=== PATIENT | female | born 1980 | race African-American/Black ===

== ENCOUNTER 2016-11-20 18:06 | Emergency (ER) | payer BC ==
[2016-11-20 18:26] VITALS: BP 109/71
--- NOTE | 2016-11-20 18:31 | ER Document Report ---
ED Medical Screen (RME) - General Stated Complaint: STOMACH AND RIGHT BACK PAIN Mode of Arrival: Ambulatory Information source: Patient Notes: pt presents to the ED with c/o severe epigastric RUQ pain that started this am. Reports nagging pain yesterday right side. Denies f/n/v/d. I greeted and performed a rapid initial assessment of this patient. Comprehensive ED assessment and evaluation of the patient, analysis of test results and completion of the medical decision making process will be conducted by additional ED providers. TRAVEL OUTSIDE OF THE [place] IN LAST 30 DAYS: No - Related Data Allergies/Adverse Reactions: No Known Allergies Allergy (Verified 05/19/15 10:22) Past Medical History Past Surgical History: Reports: Hx Gynecologic Surgery - laprascopy - Immunizations Hx Diphtheria, Pertussis, Tetanus Vaccination: Yes Physical Exam - Vital signs Vitals: Temp Pulse Resp BP Pulse Ox 98.1 F 90 17 109/71 100 11/20/16 18:24 11/20/16 18:24 11/20/16 18:24 11/20/16 18:24 11/20/16 18:24 Course - Vital Signs Vital signs: Temp Pulse Resp BP Pulse Ox 98.1 F 90 17 109/71 100 11/20/16 18:24 11/20/16 18:24 11/20/16 18:24 11/20/16 18:24 11/20/16 18:24
[2016-11-20 19:00] LABS: ABSOLUTE BASOPHILS # (AUTO) 0.1 10^3/uL (0.0-0.2); ABSOLUTE EOSINOPHILS # (AUTO) 0.2 10^3/uL (0.0-0.6); ABSOLUTE MONOCYTES (AUTO) 0.8 10^3/uL (0.1-1.4); BASOPHILS % (AUTO) 0.7 % (0-2); EOSINOPHILS % (AUTO) 3.2 % (0-6); HEMATOCRIT 39.4 % (36.0-47.0); HEMOGLOBIN 12.7 g/dL (12.0-15.5); HGB HCT DIFFERENCE -1.3; LYMPHOCYTES % (AUTO) 28.1 % (13-45); MEAN CORPUSCULAR HEMOGLOBIN 26.8 pg (27.0-33.4); MEAN CORPUSCULAR HGB CONC 32.1 g/dL (32.0-36.0); MEAN CORPUSCULAR VOLUME 84 fl (80-97); MONOCYTES % (AUTO) 11.4 % (3-13); RED BLOOD COUNT 4.71 10^6/uL (3.72-5.28); RED CELL DISTRIBUTION WIDTH 12.7 % (11.5-14.0); SEGMENTED NEUTROPHILS % (AUTO) 56.6 % (42-78)
[2016-11-20 19:09] LABS: APPEARANCE,URINE CLEAR; BILIRUBIN,URINE NEGATIVE (NEGATIVE); GLUCOSE, URINE NEGATIVE (NEGATIVE); KETONES,URINE NEGATIVE (NEGATIVE); LEUKOCYTE ESTERASE,URINE NEGATIVE (NEGATIVE); NITRITE,URINE POSITIVE (NEGATIVE); PROTEIN,URINE NEGATIVE (NEGATIVE); URINE SPECIFIC GRAVITY 1.016; UROBILINOGEN,URINE NEGATIVE mg/dL (<2.0)
[2016-11-20 19:27] LABS: ALANINE AMINOTRANSFERASE 37 U/L (9-52); ALKALINE PHOSPHATASE 53 U/L (38-126); ANION GAP 13 (5-19); ASPARTATE AMINO TRANSFERASE 35 U/L (14-36); BILIRUBIN,TOTAL 0.4 mg/dL (0.2-1.3); BLOOD UREA NITROGEN 18 mg/dL (7-20); CALCIUM 9.2 mg/dL (8.4-10.2); CARBON DIOXIDE 22 mmol/L (22-30); CHLORIDE 105 mmol/L (98-107); GLUCOSE 81 mg/dL (75-110); LIPASE 207.1 U/L (23-300); SODIUM 140.4 mmol/L (137-145); TOTAL PROTEIN 6.7 g/dL (6.3-8.2)
[2016-11-20] MEDS ORDERED: NITROFURANTOIN MONOHYD/M-CRYST 100 MG CAPSULE PO ONE (20:15)
[2016-11-20] MEDS ORDERED: HYDROCODONE/ACETAMINOPHEN 5-325 MG 6 TAB/DSPK PO PRN (20:15)
--- NOTE | 2016-11-20 20:18 | ER Document Report ---
HPI - HPI Patient complains to provider of: abdominal pain Onset: This morning Onset/Duration: Sudden, Persistent Quality of pain: Achy Severity: Severe Pain Level: 4 Associated Symptoms: None Exacerbated by: Denies Relieved by: Denies Similar symptoms previously: No Recently seen / treated by doctor: No - REPRODUCTIVE Reproductive: DENIES: : - DERM Skin Color: Normal Past Medical History - General Information source: Patient - Social History Smoking Status: Current Every Day Smoker Cigarette use (# per day): Yes Chew tobacco use (# tins/day): No Frequency of alcohol use: None Drug Abuse: None Family History: Reviewed & Not Pertinent Patient has suicidal ideation: No Patient has homicidal ideation: No Neurological Medical History: Reports: Other - trigeminal neuralgia Renal/ Medical History: Denies: Hx Peritoneal Dialysis GI Medical History: Reports: Hx Gastroesophageal Reflux Disease Psychiatric Medical History: Reports: Hx Anxiety Past Surgical History: Reports: Hx Dilation and Curettage, Hx Gynecologic Surgery - laprascopy - Immunizations Hx Diphtheria, Pertussis, Tetanus Vaccination: Yes Vertical Provider Document - CONSTITUTIONAL Agree With Documented VS: Yes Exam Limitations: No Limitations General Appearance: WD/WN, Mild Distress - looks like she doesn't feel well, nontoxic looking - INFECTION CONTROL TRAVEL OUTSIDE OF THE [place] IN LAST 30 DAYS: No - HEENT HEENT: Atraumatic, Normocephalic - NECK Neck: Normal Inspection, Supple - RESPIRATORY Respiratory: Breath Sounds Normal, No Respiratory Distress O2 Sat by Pulse Oximetry: 100 - CARDIOVASCULAR Cardiovascular: Regular Rate - GI/ABDOMEN Gastrointestinal: Abdomen Soft, Abdomen Tender - generalized. negative: Abdominal Guarding, Abdominal Rebound - MUSCULOSKELETAL/EXTREMETIES Musculoskeletal/Extremeties: YAJAIRA TRAN - NEURO Level of Consciousness: Awake, Alert, Appropriate Motor/Sensory: No Motor Deficit - DERM Integumentary: Warm, Dry Course - Re-evaluation Re-evalutation: 11/20/16 20:21 pt instructed on UTI, macrobid, s/s allergic reaction and importance of fu with pcp for recheck - Vital Signs Vital signs: Temp Pulse Resp BP Pulse Ox 98.1 F 90 17 109/71 100 11/20/16 18:24 11/20/16 18:24 11/20/16 18:24 11/20/16 18:24 11/20/16 18:24 - Laboratory Result Diagrams: 11/20/16 18:35 11/20/16 18:35 Laboratory results interpreted by me: 11/20/16 11/20/16 18:35 18:35 MCH 26.8 L Urine Nitrite POSITIVE H Urine Ascorbic Acid 20 H Discharge - Discharge Clinical Impression: Abdominal pain Qualifiers: Abdominal location: generalized Qualified Code(s): R10.84 - Generalized abdominal pain UTI (urinary tract infection) Qualifiers: Urinary tract infection type: site unspecified Hematuria presence: without hematuria Qualified Code(s): N39.0 - Urinary tract infection, site not specified Condition: Stable Disposition: HOME, SELF-CARE Instructions: Nitrofurantoin ([facility]), Oral Narcotic Medication ([facility]), Urinary Tract Infection ([facility]), Abdominal Pain ([facility]) Additional Instructions: *You have been evaluated for abdominal pain, UTI *Take medication as prescribed *Push fluids *Follow up with your primary care provider within one week for recheck *Plan urine recheck in one week *Return to ED for worsening condition, changes, needs Prescriptions: Nitrofurantoin/Nitrofuran Mac [Macrobid 100 mg Capsule] 100 mg PO BID #20 capsule Forms: Return to Work
== END 2016-11-20 20:25 | disposition home or self-care (01) ==
LOC: ER 18:06
DX: N39.0 Urinary tract infection, site not specified (principal); R10.84 Generalized abdominal pain; R10.817 Generalized abdominal tenderness; F17.210 Nicotine dependence, cigarettes, uncomplicated; Z87.19 Personal history of other diseases of the digestive system
CPT/HCPCS: 99284; 36415; 87086; 83690; 84703; 85025; 87088; 80053; 81001; 87186; J8499

== ENCOUNTER 2017-11-13 09:04 | Emergency (ER) | payer BC ==
[2017-11-13 09:25] VITALS: BP 115/82
--- NOTE | 2017-11-13 09:51 | ER Document Report ---
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 She reports onset this past of a 3 day history of pain in her right anterior chest, right neck shoulder region, and right scapular back. She does not know a history of any particular strain or stretch or injury. She does note the pain is worse when she uses her extremity, or when she lays on her left side. Laying on the right side tends to protect it. Sitting up and having her elbow on arm of the chair providing support helps the discomfort. She does have Baclofen to take as a muscle relaxer, she takes that for her trigeminal neuralgia pain. TRAVEL OUTSIDE OF THE [place] IN LAST 30 DAYS: No - Related Data Allergies/Adverse Reactions: No Known Allergies Allergy (Verified 11/20/16 20:24) Past Medical History - General Information source: Patient, [facility] Records, Outside Facility Records - Social History Smoking Status: Current Every Day Smoker Cigarette use (# per day): Yes Chew tobacco use (# tins/day): No Smoking Education Provided: No Frequency of alcohol use: None Drug Abuse: None Occupation: [employer] at [employer] Lives with: Family Family History: Reviewed & Not Pertinent Patient has suicidal ideation: No Patient has homicidal ideation: No - Past Medical History Cardiac Medical History: Reports: None Pulmonary Medical History: Reports: None EENT Medical History: Reports: None Neurological Medical History: Reports: Other - Trigeminal neuralgia Endocrine Medical History: Reports: None Renal/ Medical History: Reports: None GI Medical History: Reports: Hx Gastroesophageal Reflux Disease Musculoskeltal Medical History: Reports None Skin Medical History: Reports None Psychiatric Medical History: Reports: Hx Anxiety Past Surgical History: Reports: Hx Dilation and Curettage, Hx Gynecologic Surgery - laprascopy, D+C - Immunizations Hx Diphtheria, Pertussis, Tetanus Vaccination: Yes Review of Systems - Review of Systems Constitutional: No symptoms reported EENT: No symptoms reported Cardiovascular: No symptoms reported Respiratory: See HPI Gastrointestinal: No symptoms reported Genitourinary: No symptoms reported Female Genitourinary: No symptoms reported Musculoskeletal: See HPI Skin: No symptoms reported Hematologic/Lymphatic: No symptoms reported Neurological/Psychological: See HPI Physical Exam - Vital signs Vitals: Temp Pulse Resp BP Pulse Ox 98.0 F 75 12 115/82 100 11/13/17 09:23 11/13/17 09:23 11/13/17 09:23 11/13/17 09:23 11/13/17 09:23 Interpretation: Normal - General General appearance: Appears well, Alert In distress: None - HEENT Head: Normocephalic, Atraumatic Eyes: Normal Pupils: PERRL Neck: Supple, Other - Supporting the weight of the patient's head by lifting up under the chin and the base of the skull and allowing her to drop her shoulder muscles and totally relax feels much better. When I let go of the support she suddenly feels discomfort and wants to tense up her muscles again. Notes: Very tender to palpate the right posterior cervical muscles and right trapezius muscles going out toward the shoulder and over the scapular region. The left posterior cervical muscles and trapezius muscles are not tender to palpate. - Respiratory Respiratory status: No respiratory distress Breath sounds: Normal Chest palpation: Tender - Tenderness to palpate the right anterior chest muscles above the breast and underneath the upper breast tissue. - Cardiovascular Rhythm: Regular Heart sounds: Normal auscultation Murmur: No - Abdominal Inspection: Normal - Back Back: Tender - Tenderness to palpate the right medial scapular muscles and levator scapula muscles - Extremities General upper extremity: Other - The right trapezius muscles and right anterior and posterior shoulder muscles are somewhat tender to palpate. The entire area feels better if I support the weight of the upper extremity and allow her to let the muscles relax. General lower extremity: Normal inspection - Neurological Neuro grossly intact: Yes - Psychological Associated symptoms: Normal affect, Normal mood - Skin Skin Temperature: Warm Skin Moisture: Dry Skin Color: Normal Course - Vital Signs Vital signs: Temp Pulse Resp BP Pulse Ox 98.0 F 75 12 115/82 100 11/13/17 09:23 11/13/17 09:23 11/13/17 09:23 11/13/17 09:23 11/13/17 09:23 - EKG Interpretation by Pr EKG shows normal: Sinus rhythm, [place], Intervals, QRS Complexes, ST-T Waves Rate: Normal - 74 Rhythm: NSR Discharge - Discharge Clinical Impression: Muscle strain of anterior chest wall Strain of right trapezius muscle Qualifiers: Encounter type: initial encounter Qualified Code(s): S46.811A - Strain of other muscles, fascia and tendons at shoulder and upper arm level, right arm, initial encounter Strain of right levator scapulae muscle Qualifiers: Encounter type: initial encounter Qualified Code(s): S46.811A - Strain of other muscles, fascia and tendons at shoulder and upper arm level, right arm, initial encounter Disposition: HOME, SELF-CARE Additional Instructions: Muscle Strain: You have strained the muscles in your right anterior chest wall, your right neck and trapezius muscle region, and your right scapular back. This often occurs with strenuous exertion, or during an injury that suddenly stretches the muscle. The seriousness of a strain varies. Some strains heal within days, others cause problems for months. X-rays cannot show a muscle strain. X-rays are taken only if symptoms suggest that a fracture could be present. The usual treatment of a muscle strain is rest and ice packs. Sometimes, a sling, splint, or crutches may be necessary to rest the muscle. The muscle can be used again once pain subsides. Severe strains require a special exercise and stretching program to prevent permanent stiffness and disability. Your doctor will advise you if this will be necessary. Call the doctor immediately if pain or swelling becomes severe, or if numbness or discoloration develop. //////////////////////////////////////////////////////////////////////////////// //////////////////////////////////////////////////////////////////////////////// /////////////////// Use the sling to support the weight of your arm and shoulder, use soft collar to support the weight of your head. This should allow you to let the muscles relax. Continue taking your baclofen as a muscle relaxer. Take the pain medication as prescribed for pain and increased spasm if needed. Take Motrin 800 mg every 8 hours or 2 Aleve twice daily for the anti- inflammatory and pain relief benefit. Use moist heat to the painful muscles. Rest the right arm and shoulder is much as possible. Follow-up with your doctor if not improving over the next several days. RETURN TO THE EMERGENCY ROOM IF ANY NEW OR WORSENING SYMPTOMS. Prescriptions: Oxycodone HCl/Acetaminophen [Percocet 5-325 mg Tablet] 1 tab PO ASDIR PRN #15 tablet PRN Reason: Forms: Return to Work
--- NOTE | 2017-11-13 11:38 | EKG REPORT ---
SEVERITY:- NORMAL ECG - SINUS RHYTHM : Confirmed by: Millie Polanco 13-Nov-2017 11:37:20
== END 2017-11-13 10:01 | disposition home or self-care (01) ==
LOC: ER 09:04
DX: S29.011A Strain of muscle and tendon of front wall of thorax, initial encounter (principal); S29.012A Strain of muscle and tendon of back wall of thorax, initial encounter; S46.811A Strain of other muscles, fascia and tendons at shoulder and upper arm level, right arm, initial encounter; X58.XXXA Exposure to other specified factors, initial encounter; R07.9 Chest pain, unspecified; M54.2 Cervicalgia; M25.511 Pain in right shoulder; F17.210 Nicotine dependence, cigarettes, uncomplicated; G50.0 Trigeminal neuralgia; Z79.899 Other long term (current) drug therapy
CPT/HCPCS: 93005; 99285; 93010; L0120

== ENCOUNTER 2018-09-17 23:53 | Emergency (ER) | payer BC ==
[2018-09-18] MEDS ORDERED: ACETAMINOPHEN 325 MG TABLET PO ONE (01:09)
[2018-09-18] MEDS ORDERED: IBUPROFEN 600 MG TABLET PO ONE (01:09)
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
[2018-09-18 02:16] VITALS: BP 96/53
== END 2018-09-18 02:17 | disposition home or self-care (01) ==
LOC: ER 23:53
DX: M53.3 Sacrococcygeal disorders, not elsewhere classified (principal); M54.5 Low back pain; Y04.2XXA Assault by strike against or bumped into by another person, initial encounter
CPT/HCPCS: 72220; 99283